=== PATIENT | female | born 1975 | race Caucasian/White ===

== ENCOUNTER 2017-01-23 06:43 | Emergency (ER) | payer OTHER ==
[2017-01-23 06:52] VITALS: BP 144/127
== END 2017-01-23 08:24 | disposition home or self-care (01) ==
LOC: ED 06:43
DX: S61.452A Open bite of left hand, initial encounter (principal); R11.0 Nausea; W55.81XA Bitten by other mammals, initial encounter; Y93.89 Activity, other specified; Y92.89 Other specified places as the place of occurrence of the external cause; Y99.8 Other external cause status
CPT/HCPCS: 90715